=== PATIENT | female | born 1930 | race Caucasian/White ===

== ENCOUNTER → 2016-11-01 | Outpatient (CLI) | payer BC ==
[~2016-11-01] MED LIST: ABL/5 PO; ACET-1256 PO; AMOX875T PO; CHOL200010 PO; DESV50TA PO; ESZO1TAB20 PO; ESZO2TAB3 PO; FERR324T PO; FRS/40 PO; FURO80TA63 PO; HYDR-5688 PO; IMD/2 PO; LEVO112T2 PO; METO25TA56 PO; MULT-506 PO; OMEG10007 PO; POTA20TA16 PO; ROPI0.5T15 PO; ROSU5TAB PO; SERT-234 PO; SYN100 PO; TRIA75TA53 PO; VNTHFA/IN INH; WARF-284 PO; WARF5TAB90 PO; WARF7.5T PO; [UNRECOGNIZED DRUG - OTHER] PO
[2016-11-01 12:07] LABS: INR 1.2 (0.9-1.1); PROTHROMBIN TIME (PATIENT) 12.4 SECONDS (9.0-12.0)
== END | disposition home or self-care (01) ==
LOC: C.LAB 10:35
PROVIDERS: ATTEND Internal Medicine Interventional Cardiology
DX: I48.92 Unspecified atrial flutter (principal)

== ENCOUNTER 2016-11-30 14:08 | Emergency (ER) | payer BC ==
[~2016-11-30] VITALS: Ht 147.3 cm; Wt 76.1 kg
[~2016-11-30 14:08] MED LIST changes: -AMOX875T PO; -CHOL200010 PO; -ESZO1TAB20 PO; -HYDR-5688 PO; -IMD/2 PO; -MULT-506 PO; -POTA20TA16 PO; -ROPI0.5T15 PO; -ROSU5TAB PO; -SERT-234 PO; -SYN100 PO; -VNTHFA/IN INH; -WARF-284 PO
[2016-11-30 14:13] VITALS: TEMP 37.1; Ht 147.3 cm; Wt 76.1 kg
[2016-11-30] MEDS ORDERED: ALBUT/IPRATROP 3MG/0.5MG NEB 3 ML VIAL INH STA (14:23)
--- NOTE | 2016-11-30 14:40 | DIAGNOSTIC IMAGING REPORT ---
CHEST ONE VIEW PORTABLE CLINICAL HISTORY: EVALUATE RESPIRATORY DISTRESS. DYSPNEA COMPARISON STUDY: 08/20/2016 FINDINGS: Mild stable cardiomegaly. Small parenchymal infiltrate medial left base. Mild pulmonary vascular congestion. IMPRESSION: Small parenchymal infiltrate left base. Pulmonary vascular congestion. Electronically signed by: Gallito Murry M.D. 11/30/2016 2:38 PM Dictated Date/Time: 11/30/2016 2:38 PM
[2016-11-30] MEDS ORDERED: CHOL200010 PO (14:57)
[2016-11-30] MEDS ORDERED: WARF-284 PO (14:57)
[2016-11-30] MEDS ORDERED: ESZO1TAB20 PO (14:57)
[2016-11-30] MEDS ORDERED: SERT-234 PO (14:57)
[2016-11-30] MEDS ORDERED: MULT-506 PO (14:57)
[2016-11-30] MEDS ORDERED: IMD/2 PO (14:57)
[2016-11-30] MEDS ORDERED: POTA20TA16 PO (14:57)
[2016-11-30] MEDS ORDERED: ROPI0.5T15 PO (14:57)
[2016-11-30] MEDS ORDERED: ACET-1256 PO (14:57)
[2016-11-30] MEDS ORDERED: SYN100 PO (14:57)
[2016-11-30 15:00] LABS: BASO % 0.5 %; BASO ABS # 0.06 K/uL (0-0.2); COMPLETE YES; EOS % 3.9 %; HEMATOCRIT 42.7 % (37-47); IG% 0.8 %; LYMPH % 17.4 %; MEAN CELL VOLUME 90.9 fL (80-100); MEAN CORPUSCULAR HEMOGLOBIN 30.9 pg (25-34); MEAN PLATELET VOLUME 12.2 fL (7.4-10.4); MONO % 11.4 %; PLATELET COUNT 239 K/uL (130-400); WHITE BLOOD COUNT 10.92 K/uL (4.8-10.8)
[2016-11-30 15:07] VITALS: O2SAT 98
[2016-11-30 15:11] LABS: INR 1.7 (0.9-1.1); PARTIAL THROMBOPLASTIN RATIO 1.2; PROTHROMBIN TIME (PATIENT) 18.9 SECONDS (9.0-12.0)
--- NOTE | 2016-11-30 15:14 | EMERGENCY ROOM VISIT NOTE ---
History Report prepared by Pop: Ita Anglin Under the Supervision of: Dr. Baldo Bob M.D. First contact with patient: 14:19 Chief Complaint: COUGH Stated Complaint: COUGH, ACHING, TROUBLE BREATHING Nursing Triage Summary: Triage Note: Pt reports cough with green sputum., fever, generalized body aches. pt reports taking 3 tylenol tablets at 1000 today due to fever. History of Present Illness The patient is a 86 year old female who presents to the Emergency Room with complaints of a persistent productive cough that began 2 days ago. She is bringing up colored sputum with her cough. She also complains of a fever, sore throat, congestion, and shortness of breath. Her fever began a couple of days ago and was 102 this morning. The patient states that she was diagnosed with sinusitis last week and was on Amoxicillin. She did not have a cough or fever when diagnosed with sinusitis. She is currently still taking Amoxicillin and has 5 days of a 10 day course left. She does not have a known history of asthma or COPD. Past medical history includes congestive heart failure. She denies any recent fluid build up. She has had pneumonia in the past and was most recently diagnosed with pneumonia 6-7 years ago. She did get a flu shot 3 weeks ago. She has not been around anyone with similar symptoms. The patient is on Coumadin for a-flutter and SVT. Her most recent INR was 1.6. She did not have any medication adjustments made at that time. Source of History: patient Onset: 2 days ago Position: other (global - cough) Quality: other (productive with colored sputum) Timing: other (persistent) Associated Symptoms: + SOB, + fevers, + sorethroat Note: Other symptoms: congestion Review of Systems See HPI for pertinent positives & negatives. A total of 10 systems reviewed and were otherwise negative. Past Medical & Surgical Medical Problems: (1) Atrial flutter (2) Congestive heart failure (3) Pneumonia (4) SVT (supraventricular tachycardia) Family History Noncontributory secondary to age. Social History Smoking Status: Never Smoker Marital Status: Occupation Status: retired Current/Historical Medications Scheduled Albuterol Hfa (Ventolin Hfa), 2 PUFFS INH Q6H Amoxicillin & Pot Clavulanate (Augmentin 875-125 mg), 875 MG PO BID Aripiprazole (Abilify), 5 MG PO QAM Cholecalciferol (Vitamin D), 2,000 UNIT PO QAM Eszopiclone (Eszopiclone), 2 MG PO HS Furosemide (Lasix), 40 MG PO QAM Furosemide (Lasix), 80 MG PO UD Levothyroxine Sodium (Synthroid), 100 MCG PO QAM Metoprolol Tartrate (Lopressor) (Lopressor), 25 MG PO BID Multivitamin (Multivitamin), 1 TAB PO QAM Potassium Ext Rel (Klor-Con), 10 MEQ PO QAM Ropinirole (Requip), 0.5 MG PO HS Sertraline (Zoloft), 100 MG PO QAM Warfarin Sodium (Warfarin Sodium), 7.5 MG PO QPM [Lactose Defense], 1-2 CAPSULES PO DAILY Scheduled PRN Acetaminophen (Tylenol), 1,000 MG PO Q8 PRN for Pain Loperamide Hcl (Imodium), 2 MG PO DAILY PRN for Diarrhea Allergies Coded Allergies: Ciprofloxacin (Verified Allergy, Unknown, RASH, 11/30/16) Tetanus Toxoid (Verified Allergy, Unknown, unknown, 11/30/16) Tramadol (Verified Allergy, Unknown, BECAME UNRESPONSIVE, 11/30/16) Aspartame (Verified Adverse Reaction, Mild, SUGAR SUBSTITUTES CAUSE DIARRHEA, 11/30/16) Lactose Intolerance (Verified Adverse Reaction, Unknown, DIARRHEA, 11/30/16 ) Sulfamethoxazole w/Trimethoprim (Verified Adverse Reaction, Unknown, NAUSEA, 11/30/16) Uncoded Allergies: ARTIFICIAL SWEETENER (Allergy, Unknown, unknown, 11/30/16) Physical Exam Vital Signs Date Time Temp Pulse Resp B/P Pulse Ox O2 Delivery O2 Flow Rate FiO2 11/30/16 17:19 82 20 125/68 97 Room Air 11/30/16 16:40 76 20 125/68 94 Room Air 11/30/16 15:21 71 11/30/16 15:07 98 Room Air 11/30/16 15:05 70 20 113/70 94 Room Air 11/30/16 14:13 37.1 72 20 127/70 94 Room Air Physical Exam GENERAL: Patient is in no acute distress. HEENT: No acute trauma, normocephalic atraumatic, mucous membranes moist, no nasal congestion, no scleral icterus. NECK: No stridor, no adenopathy, no meningismus, trachea is midline. LUNGS: Diminished breath sounds bilaterally, breath sounds are equal, dry cough noted, no wheezing or rhonchi. HEART: Without murmurs gallops or rubs, regular rate and rhythm. ABDOMEN: Soft, nontender, bowel sounds positive, no hernias, no peritonitis. EXTREMITIES: No cyanosis or edema, full range of motion of all the joints without pain or difficulty, no signs for acute trauma. NEUROLOGIC: Oriented x 3, no acute motor or sensory deficits, no focal weakness. SKIN: No rash, no jaundice, no diaphoresis. Medical Decision & Procedures ER Provider Diagnostic Interpretation: X-ray results as stated below per interpretation by me and the radiologist: CHEST ONE VIEW PORTABLE CLINICAL HISTORY: EVALUATE RESPIRATORY DISTRESS. DYSPNEA COMPARISON STUDY: 08/20/2016 FINDINGS: Mild stable cardiomegaly. Small parenchymal infiltrate medial left base. Mild pulmonary vascular congestion. IMPRESSION: Small parenchymal infiltrate left base. Pulmonary vascular congestion. Electronically signed by: Gallito Murry M.D. 11/30/2016 2:38 PM Dictated Date/Time: 11/30/2016 2:38 PM Laboratory Results 11/30/16 14:40 Red Blood Count 4.70, Mean Corpuscular Volume 90.9, Mean Corpuscular Hemoglobin 30.9, Mean Corpuscular Hemoglobin Concent 34.0, Mean Platelet Volume 12.2, Neutrophils (%) (Auto) 66.0, Lymphocytes (%) (Auto) 17.4, Monocytes (%) (Auto) 11.4, Eosinophils (%) (Auto) 3.9, Basophils (%) (Auto) 0.5, Neutrophils # (Auto ) 7.20, Lymphocytes # (Auto) 1.90, Monocytes # (Auto) 1.24, Eosinophils # (Auto ) 0.43, Basophils # (Auto) 0.06 11/30/16 14:40 Test 11/30/16 14:40 11/30/16 15:15 White Blood Count 10.92 K/uL (4.8-10.8) Red Blood Count 4.70 M/uL (4.2-5.4) Hemoglobin 14.5 g/dL (12.0-16.0) Hematocrit 42.7 % (37-47) Mean Corpuscular Volume 90.9 fL (80-100) Mean Corpuscular Hemoglobin 30.9 pg (25-34) Mean Corpuscular Hemoglobin Concent 34.0 g/dl (32-36) Platelet Count 239 K/uL (130-400) Mean Platelet Volume 12.2 fL (7.4-10.4) Neutrophils (%) (Auto) 66.0 % Lymphocytes (%) (Auto) 17.4 % Monocytes (%) (Auto) 11.4 % Eosinophils (%) (Auto) 3.9 % Basophils (%) (Auto) 0.5 % Neutrophils # (Auto) 7.20 K/uL (1.4-6.5) Lymphocytes # (Auto) 1.90 K/uL (1.2-3.4) Monocytes # (Auto) 1.24 K/uL (0.11-0.59) Eosinophils # (Auto) 0.43 K/uL (0-0.5) Basophils # (Auto) 0.06 K/uL (0-0.2) RDW Standard Deviation 50.0 fL (36.4-46.3) RDW Coefficient of Variation 15.0 % (11.5-14.5) Immature Granulocyte % (Auto) 0.8 % Immature Granulocyte # (Auto) 0.09 K/uL (0.00-0.02) Prothrombin Time 18.9 SECONDS (9.0-12.0) Prothromb Time International Ratio 1.7 (0.9-1.1) Activated Partial Thromboplast Time 31.7 SECONDS (21.0-31.0) Partial Thromboplastin Ratio 1.2 Anion Gap 11.0 mmol/L (3-11) Est Creatinine Clear Calc Drug Dose 22.5 ml/min Estimated GFR () 35.7 Estimated GFR (Non- 30.8 BUN/Creatinine Ratio 16.1 (10-20) Calcium Level 8.5 mg/dl (8.5-10.1) Troponin I < 0.015 ng/ml (0-0.045) Influenza Type A Antigen Neg for Influ A (NEG) Influenza Type B Antigen Neg for Influ B (NEG) Laboratory results reviewed by me. Medications Administered Medications (Trade) Dose Ordered Sig/Judd Route Start Time Stop Time Status Last Admin Dose Admin Albuterol/ Ipratropium (Duoneb) 3 ml NOW STAT INH 11/30/16 14:23 11/30/16 14:26 DC 11/30/16 15:03 3 ML Piperacillin Sod/ Tazobactam Sod (Zosyn Iv) 4.5 gm NOW STAT IV 11/30/16 15:40 11/30/16 15:41 DC 11/30/16 16:30 4.5 GM Albuterol (Ventolin Hfa Inhaler) 2 puffs NOW ONCE INH 11/30/16 16:45 11/30/16 16:46 DC 11/30/16 16:45 2 PUFFS ECG Indication: SOB/dyspnea Rate (beats per minute): 69 Rhythm: normal sinus Findings: no acute ischemic change, no ectopy ED Course 1420: The patient was evaluated in room C6. A complete history and physical exam was performed. 1423: Ordered DuoNeb 3 ml INH. 1540: Ordered Zosyn 4.5 gm IV. 1643: Reevaluated the patient. She was resting comfortably. Discussed results and discharge instructions: She verbalized understanding and agreement. The patient is ready for discharge. Ordered Albuterol 2 puffs INH. Medical Decision Differential includes influenza, pneumonia, bronchitis, CHF, electrolyte imbalance, anemia, cardiac ischemia. There is a very mild leukocytosis, this could be consistent with infection. No concerning anemia. No significant electrolyte abnormality or kidney failure. EKG shows a sinus rhythm, no acute ischemia. Cardiac enzyme testing times one is not suggestive of acute cardiac injury. Influenza testing is negative. Chest film shows a very small left lower lung pneumonia. INR is elevated at 1.7 , consistent with her Coumadin use. The patient received a DuoNeb, she was given albuterol via [facility]. She received IV Zosyn. The patient presents with a fever and productive cough. She appears to have pneumonia. She does have some allergies and I do think given the allergies that Augmentin would be the best choice. She is on amoxicillin, she will stop this. I will switch her to Augmentin. She will use the inhaler to help with bronchospasm, Tylenol for fever and pain. She was encouraged to return here for worsening breathing. She was encouraged to return if not improving. She will follow with her doctors office. Impression Primary Impression: Pneumonia Additional Impressions: Fever Cough Scribe Attestation The scribe's documentation has been prepared under my direction and personally reviewed by me in its entirety. I confirm that the note above accurately reflects all work, treatment, procedures, and medical decision making performed by me. Departure Information Dispostion Home / Self-Care Prescriptions Albuterol Hfa (VENTOLIN HFA) 200 Puffs/31866 Mcg Aers 2 PUFFS INH Q6H, #1 INHALER Prov: Baldo Bob M.D. 11/30/16 Amoxicillin & Pot Clavulanate (Augmentin 875-125 mg) 1 Tab Tab 875 MG PO BID for 10 Days, #20 TAB Prov: Baldo Bob M.D. 11/30/16 Referrals Shyam Guzmán D.O.Int.Med. (PCP) Patient Instructions [facility] Additional Instructions stop amoxicillin start augmentin 2x per day for 10 days albuterol inhaler 2 puffs every 4 hours follow with aubrey ba for a recheck return to the ER for worsening symptoms or worsening breathing Problem Qualifiers
[2016-11-30 15:20] LABS: BLOOD UREA NITROGEN 24 mg/dl (7-18); BUN/CREATININE RATIO 16.1 (10-20); CALCIUM 8.5 mg/dl (8.5-10.1); CARBON DIOXIDE 24 mmol/L (21-32); CHLORIDE 106 mmol/L (98-107); GLUCOSE 145 mg/dl (70-99); POTASSIUM 3.8 mmol/L (3.5-5.1); SODIUM 141 mmol/L (136-145)
[2016-11-30] MEDS ORDERED: PIPERACILLIN/TAZOBACTAM 4.5 GM/100ML D5W IV STA (15:40)
[2016-11-30] MEDS ORDERED: ALBUTEROL HFA 8 GM INHALER INH ONE (16:45)
[2016-11-30] MEDS ORDERED: VNTHFA/IN INH (16:47)
[2016-11-30] MEDS ORDERED: AMOX875T PO (16:47)
[2016-11-30 17:19] VITALS: BP 125/68; PULSE 82; O2SAT 97
[2017-03-02] MEDS ORDERED: ROSU5TAB PO (13:18)
[2017-06-27] MEDS ORDERED: HYDR-5688 PO (14:25)
== END 2016-11-30 17:28 | disposition home or self-care (01) ==
LOC: C.EDB 14:10 → C.EDC 17:28
DX: J18.9 Pneumonia, unspecified organism (principal); I48.92 Unspecified atrial flutter; I50.9 Heart failure, unspecified; I47.1 Supraventricular tachycardia; R50.9 Fever, unspecified

== ENCOUNTER → 2017-02-16 | Outpatient (CLI) | payer BC ==
[~2017-02-16] MED LIST changes: +CHOL200010 PO; -DESV50TA PO; +ESZO1TAB20 PO; -ESZO2TAB3 PO; -FERR324T PO; +HYDR-5688 PO; +IMD/2 PO; -LEVO112T2 PO; +MULT-506 PO; -OMEG10007 PO; +POTA20TA16 PO; +ROPI0.5T15 PO; +ROSU5TAB PO; +SERT-234 PO; +SYN100 PO; -TRIA75TA53 PO; +VNTHFA/IN INH; +WARF-284 PO; -WARF5TAB90 PO; -WARF7.5T PO
[2017-02-16 12:32] LABS: INR 1.3 (0.9-1.1); PROTHROMBIN TIME (PATIENT) 14.3 SECONDS (9.0-12.0)
[2017-02-16 12:47] LABS: ALT/SGPT 25 U/L (12-78); AST/SGOT 29 U/L (15-37); BLOOD UREA NITROGEN 19 mg/dl (7-18); BUN/CREATININE RATIO 13.8 (10-20); CALCIUM 9.1 mg/dl (8.5-10.1); CARBON DIOXIDE 29 mmol/L (21-32); CHLORIDE 106 mmol/L (98-107); GLUCOSE 102 mg/dl (70-99); MAGNESIUM 2.2 mg/dl (1.8-2.4); POTASSIUM 4.3 mmol/L (3.5-5.1); SODIUM 143 mmol/L (136-145)
[2017-02-16 12:51] LABS: ALKALINE PHOSPHATASE 47 U/L (45-117); CHOLESTEROL 229 mg/dl (0-200); CHOLESTEROL/HDL RATIO 5.9; HDL CHOLESTEROL 39 mg/dl; LDL CHOLESTEROL CALCULATED 147 mg/dl; PHOSPHORUS 4.2 mg/dl (2.5-4.9); TRIGLYCERIDES 214 mg/dl (0-150); VERY LOW DENSITY LIPOPROT CALC 43 mg/dl
[2017-02-16 13:23] LABS: URINE APPEARANCE CLEAR (CLEAR); URINE BILIRUBIN NEG (NEG); URINE COLOR YELLOW; URINE NITRITE NEG (NEG); UROBILINOGEN NEG (NEG); ZZUR CULT IF INDIC CLEAN CATCH NO
[2017-02-16 13:36] LABS: MANUAL MICROSCOPIC REQUIRED? NO; REVIEW REQ? NO
[2017-02-16 19:19] LABS: URINE PROTIEN/CREAT RATIO 0.2 (0-0.2); URINE TOTAL PROTEIN 7.9 mg/dl (0-11.9)
== END | disposition home or self-care (01) ==
LOC: C.LAB 10:55
PROVIDERS: ATTEND Internal Medicine Interventional Cardiology
DX: N18.3 Chronic kidney disease, stage 3 (moderate) (principal); E78.00 Pure hypercholesterolemia, unspecified; I48.92 Unspecified atrial flutter

== ENCOUNTER → 2017-05-31 | Outpatient (CLI) | payer BC ==
[2017-05-31 12:32] LABS: INR 1.1 (0.9-1.1); PARTIAL THROMBOPLASTIN RATIO 1.1; PROTHROMBIN TIME (PATIENT) 11.4 SECONDS (9.0-12.0)
== END | disposition home or self-care (01) ==
LOC: C.LAB 10:14
PROVIDERS: ATTEND Physician Assistant Medical
DX: Z01.812 Encounter for preprocedural laboratory examination (principal); M54.16 Radiculopathy, lumbar region; M51.86 Other intervertebral disc disorders, lumbar region; M48.06 Spinal stenosis, lumbar region; Z88.1 Allergy status to other antibiotic agents; Z88.5 Allergy status to narcotic agent; Z88.2 Allergy status to sulfonamides; Z88.7 Allergy status to serum and vaccine; Z91.048 Other nonmedicinal substance allergy status; E73.9 Lactose intolerance, unspecified; Z79.01 Long term (current) use of anticoagulants; N18.3 Chronic kidney disease, stage 3 (moderate); M25.551 Pain in right hip

== ENCOUNTER → 2017-10-25 | Outpatient (CLI) | payer BC ==
[~2017-10-25] MED LIST changes: +ASCO10003 PO; +B-COTAB18 PO; +CMD5 PO; +CMD75 PO; +CRS5 PO; +ESZO1TAB18 PO; -HYDR-5688 PO; +LEVO125T5 PO; +OYST500T47 PO; +POTA-639 PO; +POTA10TA PO; -POTA20TA16 PO; +PSYL48.59 PO; -VNTHFA/IN INH
[2017-10-25 16:42] LABS: BASO % 0.4 %; BASO ABS # 0.03 K/uL (0-0.2); EOS % 3.1 %; EOS ABS # 0.26 K/uL (0-0.5); HEMATOCRIT 39.5 % (37-47); HEMOGLOBIN 13.1 g/dL (12.0-16.0); IG# 0.02 K/uL (0.00-0.02); LYMPH % 22.7 %; LYMPH ABS # 1.92 K/uL (1.2-3.4); MEAN CELL VOLUME 91.6 fL (80-100); MEAN CORPUSCULAR HEMOGLOBIN 30.4 pg (25-34); MEAN CORPUSCULAR HGB CONC 33.2 g/dl (32-36); MONO % 8.9 %; MONO ABS # 0.75 K/uL (0.11-0.59); NEUT % 64.7 %; NEUT ABS # 5.48 K/uL (1.4-6.5); PLATELET COUNT 209 K/uL (130-400); RED CELL DISTRIBUTION WIDTH CV 13.7 % (11.5-14.5); RED CELL DISTRIBUTION WIDTH SD 45.9 fL (36.4-46.3); WHITE BLOOD COUNT 8.46 K/uL (4.8-10.8)
[2017-10-25 16:50] LABS: ALBUMIN 3.4 gm/dl (3.4-5.0); ALT/SGPT 29 U/L (12-78); AST/SGOT 28 U/L (15-37); BLOOD UREA NITROGEN 32 mg/dl (7-18); CALCIUM 8.2 mg/dl (8.5-10.1); CARBON DIOXIDE 29 mmol/L (21-32); CREATININE 1.32 mg/dl (0.60-1.20); GLUCOSE 95 mg/dl (70-99); POTASSIUM 3.8 mmol/L (3.5-5.1); SODIUM 139 mmol/L (136-145)
[2017-10-25 17:01] LABS: ALKALINE PHOSPHATASE 54 U/L (45-117); TOTAL PROTEIN 6.8 gm/dl (6.4-8.2)
== END | disposition home or self-care (01) ==
LOC: C.LABBC 13:51
PROVIDERS: ATTEND Physician Assistant
DX: D64.9 Anemia, unspecified (principal); I10 Essential (primary) hypertension; E03.9 Hypothyroidism, unspecified

== ENCOUNTER → 2018-02-02 | Outpatient (CLI) | payer BC ==
[~2018-02-02] MED LIST changes: -ASCO10003 PO; -B-COTAB18 PO; -CMD5 PO; -CMD75 PO; -CRS5 PO; -ESZO1TAB18 PO; -LEVO125T5 PO; -OYST500T47 PO; -POTA10TA PO; -PSYL48.59 PO
== END | disposition home or self-care (01) ==
LOC: C.MAMM 14:01
PROVIDERS: ATTEND Family Medicine
DX: Z13.820 Encounter for screening for osteoporosis (principal); M85.852 Other specified disorders of bone density and structure, left thigh; M81.0 Age-related osteoporosis without current pathological fracture

== ENCOUNTER → 2018-03-17 | Outpatient (CLI) | payer BC ==
[2018-03-17 15:48] LABS: BASO % 0.4 %; BASO ABS # 0.03 K/uL (0-0.2); EOS % 3.7 %; EOS ABS # 0.28 K/uL (0-0.5); HEMATOCRIT 38.4 % (37-47); IG# 0.03 K/uL (0.00-0.02); LYMPH % 27.2 %; LYMPH ABS # 2.04 K/uL (1.2-3.4); MEAN CELL VOLUME 90.6 fL (80-100); MEAN CORPUSCULAR HEMOGLOBIN 30.7 pg (25-34); MEAN CORPUSCULAR HGB CONC 33.9 g/dl (32-36); MEAN PLATELET VOLUME 11.4 fL (7.4-10.4); MONO % 8.3 %; MONO ABS # 0.62 K/uL (0.11-0.59); NEUT ABS # 4.49 K/uL (1.4-6.5); PLATELET COUNT 215 K/uL (130-400); RED CELL DISTRIBUTION WIDTH CV 13.8 % (11.5-14.5); RED CELL DISTRIBUTION WIDTH SD 45.4 fL (36.4-46.3); WHITE BLOOD COUNT 7.49 K/uL (4.8-10.8)
[2018-03-17 16:16] LABS: ALBUMIN 3.4 gm/dl (3.4-5.0); BLOOD UREA NITROGEN 29 mg/dl (7-18); CALCIUM 8.2 mg/dl (8.5-10.1); CARBON DIOXIDE 24 mmol/L (21-32); CREATININE 1.29 mg/dl (0.60-1.20); GLUCOSE 92 mg/dl (70-99); PHOSPHORUS 3.1 mg/dl (2.5-4.9); POTASSIUM 3.6 mmol/L (3.5-5.1); SODIUM 141 mmol/L (136-145)
== END | disposition home or self-care (01) ==
LOC: C.LAB 14:37
PROVIDERS: ATTEND Internal Medicine Nephrology
DX: N18.3 Chronic kidney disease, stage 3 (moderate) (principal)